=== PATIENT | female | born 1985 ===

== ENCOUNTER → 2025-06-25 | Outpatient (CLI) | payer MEDICAID, SELFPAY ==
--- NOTE | 2025-06-25 08:30 | XR_ITS ---
Examination: Screening digital mammography, bilateral Computer aided detection 3-D breast Tomosynthesis, bilateral Date and time of exam: June 25, 2025, 0835 hours Compared to mammograms dating to May 19, 2024 Indication: Screening Technique: Nonmagnified MLO, CC views of the breasts to been obtained, reconstructed from 3-D Tomosynthesis images. R2 computer aided detection program utilized for evaluation of suspicious masses and/or abnormal calcifications. 3-D Tomosynthesis images obtained. Findings: Breasts are heterogeneously dense, which may obscure small masses No interval suspicious masses Benign calcifications Impression: BI-RADS category II: Benign Findings. Recommend 1 year follow-up mammogram.
== END | disposition home or self-care (01) ==
PROVIDERS: PCP Physician Assistant; Referring Provider Obstetrics & Gynecology; Visit Provider Obstetrics & Gynecology
DX: Z12.31 Encounter for screening mammogram for malignant neoplasm of breast (principal); R92.323 Mammographic fibroglandular density, bilateral breasts; R92.1 Mammographic calcification found on diagnostic imaging of breast
CPT/HCPCS: 77063; 77067

== ENCOUNTER 2025-08-13 12:34 | Emergency (ER) | payer MEDICAID, SELFPAY ==
[2025-08-13 12:52] VITALS: BP 122/79; PULSE 80; RESP 16; TEMP 36.7; O2SAT 100; BMI 26.5
--- NOTE | 2025-08-13 13:12 | XR_ITS ---
Examination: CT brain head without contrast. 2-D sagittal coronal reconstructions Date and time of exam: August 13, 2025, 1319 hours INDICATIONS: Send generalized head pain and dizziness today CTDI: vol (mGy): 48.1 DLP: (mGycm): 868 Technique: Multiple CT axial sections of the brain have been obtained, 5 mm slice thickness. Contrast has not been administered. 2-D sagittal, coronal reconstructions have been obtained Low dose protocols were performed. One or more of the following dose reduction techniques were used; automated exposure control, adjustment of the mA and/or KV according to patient size, use of iterative reconstruction technique. Findings: No significant ventricular enlargement. Intra-axial or extra-axial hemorrhage density is not seen. No mass effect or midline shift Basal cisterns are not remarkable. Fourth ventricle is midline. Cranial vault intact. Impression: Negative for acute hemorrhage, mass effect or midline shift
--- NOTE | 2025-08-13 13:47 | PD.EDHA ---
ED Headache RME/HPI General Chief Complaint: Headache Stated Complaint: REED X2 DAYS Time Seen by Provider: 08/13/25 12:36 Arrival date/time: 08/13/25 12:34 40-year-old female presents to the emergency department today complains of headache ongoing x 2 days patient does report history of migraine headaches patient reports no fever nausea or vomiting no neck pain Limitations: no limitations Related Data Previous Rx's ?Medication ?Instructions ?Recorded diphenhydramine HCl 50 mg capsule 50 mg PO TID PRN allergic reaction 06/03/23 #15 caps epinephrine 0.3 mg/0.3 mL 0.3 ml subcut .x1 PRN 06/03/23 injection, auto-injector (EpiPen hypersensitivity reaction #2 ea 2-Param) prednisone 50 mg tablet 50 mg PO QDAY #5 tabs 06/03/23 albuterol sulfate 90 mcg/actuation 1 inh inhalation QID PRN shortness 06/04/23 aerosol inhaler of breath or wheezing #8.5 grams acetaminophen-caffeine 500 mg-65 1 tab PO Q6H PRN pain #30 tabs 08/13/25 mg tablet (Excedrin Tension Headache) Allergies Allergy/AdvReac Type Severity Reaction Status Date / Time shellfish derived Allergy Intermediate Swelling Verified 05/21/23 05:25 of Lip/Tongue/Throat Review of Systems Review of Systems Systems Reviewed: All systems reviewed, normal except as documented Constitutional Constitutional: Reports system reviewed and no additional complaints, except as documented, Denies fever(s) and Reports headache(s) Eyes Eyes: Reports system reviewed and no additional complaints, except as documented and Denies blurry vision ENT Ears, Nose, Mouth, and Throat: Reports system reviewed and no additional complaints, except as documented, Reports headache(s), Denies nasal congestion and Denies nasal discharge Cardiovascular Cardiovascular: Reports system reviewed and no additional complaints, except as documented, Denies chest pain and Denies dyspnea Respiratory Respiratory: Reports system reviewed and no additional complaints, except as documented, Denies chest congestion, Denies cough and Denies dyspnea Gastrointestinal Gastrointestinal: Reports system reviewed and no additional complaints, except as documented and Denies abdominal pain Integumentary/Breasts Skin/Breast: Reports system reviewed and no additional complaints, except as documented and Denies rash Neurologic Neurologic: Reports system reviewed and no additional complaints, except as documented, Reports as per HPI and Reports headache(s) Past Medical History Past Medical History CARDIAC: Negative Congestive Heart Failure RESPIRATORY: Negative Chronic Obstructive Pulmonary Disease (COPD) GENITOURINARY: Negative Renal Disease ENDOCRINE: Negative Diabetes Mellitus Type 1 or Diabetes Mellitus Type 2 Social History SMOKING STATUS: Never smoker ED Exam General Limitations: Present no limitations General appearance: Present alert and in no apparent distress Head Head exam: Present atraumatic Eye Eye exam: Present normal appearance, PERRL and EOMI ENT ENT exam: Present normal exam, normal oropharynx and mucous membranes moist Neck Neck exam: Present normal inspection, full ROM and trachea midline Chest Chest inspection: Present normal inspection and symmetric chest wall rise Respiratory Respiratory exam: Present normal lung sounds bilaterally Cardiovascular Cardiovascular exam: Present regular rate, normal rhythm and normal heart sounds Abdominal Exam Abdominal exam: Present soft and normal bowel sounds Extremities Exam Extremities exam: Present normal inspection and full ROM Back Exam Back exam: Present normal inspection and full ROM Neurological Exam Neurological exam: Present alert, oriented X3, CN II-XII intact, normal gait and reflexes normal; Absent motor sensory deficit Psychiatric Psychiatric exam: Present normal affect and normal mood Skin Skin exam: Present warm, dry, intact and normal color Course Quality Measures none Orders Category Date Time Status CT head/brain wo con Stat Exams 08/13/25 13:12 Completed DiphenhydrAMINE [Benadryl] Med 08/13/25 13:47 Discontinued 25 mg PO X1 ONE Ketorolac Inj [Toradol Inj] Med 08/13/25 13:47 Discontinued 30 mg IM X1 ONE Metoclopramide Inj [Reglan Inj] Med 08/13/25 13:47 Discontinued 10 mg IM X1 ONE Vital Signs Vital signs: Vital Signs Temperature 98.0 F 08/13/25 12:52 Pulse Rate 80 08/13/25 12:52 Respiratory Rate 16 08/13/25 12:52 Blood Pressure 122/79 08/13/25 12:52 Pulse Oximetry (%) 100 08/13/25 12:52 Oxygen Delivery Method Room Air 08/13/25 12:52 O2 saturation 100% room air within normal notes Headache MDM Narrative MDM Narrative:: 40-year-old female presents to the emergency department today complains of headache ongoing x 2 days patient does report history of migraine headaches patient reports no fever nausea or vomiting no neck pain On exam patient well-appearing patient does not appear look toxic no acute distress Imaging obtained no acute emergent findings noted Patient medicated here for headache and discharged home with pain meds Patient discharged home in no distress to follow-up with primary care doctor in the next 24 to 48 hours and for any worsening symptoms to return to the ER immediately Patient data External records reviewed:: [facility] previous records Clinical information provided by:: patient Social determinants that could affect healthcare access:: none Patient has the following chronic illnesses:: Headache How is presenting disease/condition affected by chronic disease/condition?: caused by Evaluation data The following diagnostics were reviewed and interpreted by me:: radiology exam(s) Lab and/or radiology exams considered but not ordered:: Radiology obtained Interpretation Summary: Reviewed by me Medications / Prescriptions Medications or Prescriptions considered but not ordered:: Given Medication administrations:: Medication Administration History Discontinued Medications Diphenhydramine HCl (Diphenhydramine 25 Mg Capsule) 25 mg PO X1 ONE Stop: 08/13/25 13:48 Last Admin: 08/13/25 14:07 Dose: 25 mg Documented By: Ketorolac Tromethamine (Ketorolac Inj 30 Mg/Ml Vial) 30 mg IM X1 ONE Stop: 08/13/25 13:48 Last Admin: 08/13/25 14:07 Dose: 30 mg Documented By: Metoclopramide HCl (Metoclopramide Inj 5 Mg/Ml Vial 2 Ml) 10 mg IM X1 ONE; Protocol Stop: 08/13/25 13:48 Last Admin: 08/13/25 14:06 Dose: 10 mg Documented By: Given Consultations Consultation(s) initiated? (list below): No Diagnosis Differential diagnosis headache: migraine, tension headache, subarachnoid hemorrhage and headache Most likely diagnosis given after review of the tests above:: Headache Admission Indicated Admission indicated?: not indicated Admission Request Was there a request for admission?: No Disposition Plan Disposition Plan: Discharge Discharge Attestation Discharge Attestation: The patient and all family members were given an opportunity to ask questions and understood the discharge instructions. Discharge instructions specifically effects, indications for sooner follow up or return to the emergency department, and the expected course of current diagnosis. Patient condition: Stable Discharge Plan Plan Patient Disposition: HOME (Self Care) Discharge Disposition comment: Stable Prescriptions/Referrals Prescriptions/Med Rec: New Excedrin Tension Headache 500-65 mg tablet 1 tab PO Q6H PRN (Reason: pain) Qty: 30 0RF No Action flu vacc [id number] 6mos up(PF) 60 mcg (15 mcg x 4)/0.5 mL syringe 0.5 ml IM ONCE Qty: 0.5 0RF epinephrine [EpiPen 2-Param] 0.3 mg/0.3 mL auto-injector 0.3 ml subcut .x1 PRN (Reason: hypersensitivity reaction) Qty: 2 0RF Rx Instructions: Report immediately to emergency department if you have to adminsitaer prednisone 50 mg tablet 50 mg PO QDAY Qty: 5 0RF diphenhydramine HCl 50 mg capsule 50 mg PO TID PRN (Reason: allergic reaction) Qty: 15 0RF albuterol sulfate 90 mcg/actuation HFA aerosol inhaler 1 inh inhalation QID PRN (Reason: shortness of breath or wheezing) Qty: 8.5 0RF Referrals: Rosalia Catalan PA-C [Primary Care Provider] - In 1 week Problem List Clinical Impression: Migraine Patient/Caregiver Discharge Instructions Additional Instructions: Please follow up with your primary care doctor in the next 24-48hrs for any worsening symptoms return here immediately Print Language: Arabic Stand Alone Forms: Chiara Award Info., Work/School Release, Patient Portal Info Letter PA/LAURE Supervising Physician BARBARA/LAURE Supervising Physician: Dr. Vargas
[2025-08-13] MEDS: METOCLOPRAMIDE INJ 5 MG/ML VIAL 2 ML 10 MG IM (14:06)
[2025-08-13] MEDS: KETOROLAC INJ 30 MG/ML VIAL IM (14:07)
== END 2025-08-13 14:17 | disposition home or self-care (01) ==
PROVIDERS: Emergency Provider Emergency Medicine; PCP Physician Assistant
DX: G43.909 Migraine, unspecified, not intractable, without status migrainosus (principal)
CPT/HCPCS: 70450; 96372; 99283; J1885; J2765; A9270